=== PATIENT | female | born 1990 ===

== ENCOUNTER 2022-09-14 07:03 | Inpatient (IN) ==
--- NOTE | 2022-09-13 08:51 | Anesthesiology Consultation ---
Date of Service September 13, 2022 Assessment & Plan (1) Encounter for pre-operative examination: - COVID screening: Per assessment on 09/13: No known COVID-19 positive contacts or current COVID-19 related symptoms. Travel screen negative. Patient vaccinated. At surgeon discretion if preop Covid testing being done. - End Stapler needed: Welsh. L&D aware. Chart Review Chart Review: Acceptable Risk for Surgery Consults Requested none ASA [id number] Proposed Anesthesia Anesthesia Type: MAC Spinal History Surgery Operation Date: 09/14/22 08:50 Proposed Procedures p Repeat Section - Lorenzo Foote MD Height/Weight Height: 5 ft 2 in Weight: 87.543 kg Allergies Allergy/AdvReac Type Severity Reaction Status Date / Time No Known Allergies Allergy Verified 09/13/22 08:08 Medications Home Medications Medication Instructions Recorded Confirmed Last Taken prenat.vits,emely,gml-yhls-inucf 1 tab PO DAILY 09/13/22 09/13/22 Unknown Active Medications Generic Name Dose Route Start Last Admin Trade Name Freq PRN Reason Stop Dose Admin Citric Acid/Sodium Citrate 30 ml 09/14/22 06:00 09/14/22 09:16 Citric Acid/Sodium Citrate 15 Ml Udc PO 09/14/22 23:59 30 ml PREOP LAVERNE Administration Lactated Ringer's 1,000 mls @ 1,000 mls/hr 09/14/22 07:00 09/14/22 09:30 Lr IV 09/14/22 23:59 Infused TODAY@0700 LAVERNE Infusion Oxytocin 20 units/ Lactated 1,002 mls @ 125 mls/hr 09/14/22 11:30 09/14/22 12:05 Ringer's IV 09/15/22 03:31 125 mls/hr .Q8H1M LAVERNE Administration Ketorolac Tromethamine 30 mg 09/14/22 10:53 09/14/22 15:43 Ketorolac 30 Mg/Ml Vial IV 09/15/22 04:53 30 mg Q6H PRN Administration Breakthrough Surgical Pain Past Medical History Medical History No pertinent past medical history Past Surgical History Surgical History Hx of section Social History Smoking Status: Never smoker Do You Dip or Chew Tobacco: No Hx Alcohol Use: No Hx Substance Use: No substance use type: does not use Physical Exam Vital Signs Last Vital Signs Temp 36.2 C L 09/14/22 13:30 Pulse 98 H 09/14/22 13:30 Resp 16 09/14/22 13:30 BP 106/69 09/14/22 13:30 Pulse Ox 98 09/14/22 13:30 O2 Del Method Room Air 09/14/22 13:30 Testing Laboratory Results 09/14/22 07:17 09/14/22 08:42 Blood Type B Positive 09/14/22 07:16 Antibody Screen NEGATIVE 09/14/22 07:16
[~2022-09-14 07:03] MED LIST: CITRIC ACID/SODIUM CITRATE 15 ML UDC PO SCH; LACTATED RINGER'S 1,000 ML IV SCH; ceFAZolin 2,000 MG in SYRINGE 0 ML IV SCH
[2022-09-14 07:40] LABS: Basophils # (auto) 0.01 K/uL (0-0.2); Basophils % (auto) 0.1 %; Eosinophils # (auto) 0.08 K/uL (0-0.50); Eosinophils % (auto) 1.1 %; Hematocrit (blood only) 34.6 % (37.0-47.0); Hemoglobin 11.9 g/dl (12.0-16.0); Immature Granulocytes # (auto) 0.03 K/uL (0.01-0.20); Immature Granulocytes % (auto) 0.4 %; Lymphocytes # (auto) 2.06 K/uL (1.2-3.4); Lymphocytes % (auto) 29.1 %; Mean Corpuscular Hemoglobin 30.7 pg (25.0-34.0); Mean Corpuscular Hgb Conc 34.4 g/dL (32.0-36.0); Mean Corpuscular Volume 89.4 fL (80.0-100.0); Mean Platelet Volume 10.7 fL (9.4-12.4); Monocytes # (auto) 0.59 K/uL (0.11-0.59); Monocytes % (auto) 8.3 %; Neutrophils # (auto) 4.32 K/uL (1.40-6.50); Platelet Count 169 K/uL (130-400); RDW Coefficient of Variation 12.8 % (11.5-14.5); RDW Standard Deviation 41.7 fL (36.4-46.3); Red Blood Count 3.87 M/uL (4.20-5.40); White Blood Count 7.09 K/ul (4.8-10.8)
--- NOTE | 2022-09-14 08:25 | History & Physical Report ---
Date of Service September 14, 2022 Assessment & Plan (1) History of delivery, currently : Plan: 32 yo at 39.6 wks with h/o 2 Csections scheduled for Repeat CS VSS Afebrile FHR reassuring GBS neg Signed an informed consent for RCS , declined Tubal sterilization, Plan to admit, labs and prepare for OR (2) Encounter for pre-operative examination: (3) Gestational diabetes mellitus (GDM): Admission and Anticipated Discharge Date Admission Date: September 14, 2022 History of Present Illness Chief Complaint: Scheduled R epeat CSEction Primary Care Provider: NO PCP Patient is a 32 yo at 39.6 wks, with h/o 2 prior C sections, scheduled for 3rd one today. She was recently transferred from another OB practice in [place]. She reports no medical problems. She has GDMA1, denies any other problems of . +FM She understands the risks and benefits and sgned an informed consent. Declined tubal sterilization. Allergies Allergy/AdvReac Type Severity Reaction Status Date / Time No Known Allergies Allergy Verified 09/13/22 08:08 Home Medications Medication Instructions Recorded Confirmed Type prenat.vits,emely,ays-mmub-qfcok 1 tab PO DAILY 09/13/22 09/13/22 History Patient History Medical History No pertinent past medical history Surgical History Hx of section Social History Smoking Status: Never smoker Second Hand Exposure: No; Do You Dip or Chew Tobacco: No; Tobacco Cessation Education Requested by Patient: No Hx Alcohol Use: No Hx Substance Use: No Preferred Language: Urdu Communication Ability: Effective Wood Die Maker Required: Yes Beliefs That Will Affect Care: Restoration Restoration Beliefs: MORMONISM Current Living Situation: Spouse and Family Other Information That Helps Us Care for You: No Feels Safe at Home: Yes Safety Concerns: Feels Safe At This Time Assistive Devices: None OB History Primary Csection on 2017 for breech Repeat Csection in 2020 for repeat Review of Systems as per Subjective / HPI Physical Exam Constitutional: WD/WN, vitals as above Gastrointestinal (Abdomen): normal bowel sounds, soft, nontender, no hepatos plenomegaly (gravid) Genitourinary: normal external appearance OB Exam Monitor Tracing: + external uterine monitor used and + category I Results & Data Vital Signs (Past 12 Hours) Vital Signs Pulse BP 09/14/22 07:31 82 111/65
[2022-09-14] MEDS ORDERED: SODIUM CHLORIDE 0.9% 250 ML IV PRN (09:04)
[2022-09-14 09:20] LABS: Alanine Aminotransferase 8 U/L (7-52); Albumin Globulin Ratio 1.1 (0.9-2); Albumin Level 3.2 gm/dl (3.4-5.0); Alkaline Phosphatase 100 U/L (34-104); Anion Gap 8 (3-11); Aspartate Aminotransferase 13 U/L (13-39); BUN Creatinine Ratio 19.4 (10-20); Bilirubin,Total 0.4 mg/dl (0.2-1.0); Blood Urea Nitrogen 7 mg/dl (6-23); Calcium 8.4 mg/dl (8.6-10.3); Carbon Dioxide 24 mmol/L (21-32); Chloride 105 mmol/L (98-107); Creatinine Clr Calc Pharmacy 228.3 ml/min; Est GFR (African American) > 150.0 ml/min; Est GFR (Non-African American) 141.7 ml/min; Globulin 2.9 gm/dl (2.5-4.0); Glucose 78 mg/dl (70-99(Fasting)); Potassium 3.5 mmol/L (3.5-5.1); Sodium 137 mmol/L (136-145); Total Protein 6.1 gm/dl (6.0-8.3)
[2022-09-14] MEDS ORDERED: MoRPHine SULFATE PF 1 MG/ML 10 ML AMP/VIAL ONE (09:35)
[2022-09-14] MEDS ORDERED: ePHEDrine sulfate 50 MG/ML SYR ONE (09:50)
[2022-09-14] MEDS ORDERED: PHENYLEPHRINE 100MCG/ML 5ML SYR ONE (09:50)
[2022-09-14] MEDS ORDERED: OXYTOCIN 10 UNITS/ML 10ML VIAL ONE (09:50)
[2022-09-14] MEDS ORDERED: ePHEDrine sulfate 50 MG/ML AMP ONE (09:50)
[2022-09-14] MEDS ORDERED: fentaNYL citrate PF 100 MCG/2 ML VIAL ONE (10:17)
[2022-09-14] MEDS ORDERED: ONDANSETRON INJ 2 MG/ML 2 ML VIAL ONE (10:17)
--- NOTE | 2022-09-14 10:51 | Anesthesiology Consultation ---
Date of Service September 14, 2022 Assessment & Plan Chart Review Chart Review: Acceptable Risk for Surgery Consults Requested none History Surgery Operation Date: 09/14/22 08:50 Proposed Procedures p Repeat Section - Lorenzo Foote MD Height/Weight Height: 5 ft 2 in Weight: 87.543 kg Allergies Allergy/AdvReac Type Severity Reaction Status Date / Time No Known Allergies Allergy Verified 09/13/22 08:08 Medications Home Medications Medication Instructions Recorded Confirmed Last Taken prenat.vits,emely,hcx-mwmh-xayug 1 tab PO DAILY 09/13/22 09/13/22 Unknown Active Medications Generic Name Dose Route Start Last Admin Trade Name Freq PRN Reason Stop Dose Admin Citric Acid/Sodium Citrate 30 ml 09/14/22 06:00 09/14/22 09:16 Citric Acid/Sodium Citrate 15 Ml Udc PO 09/14/22 23:59 30 ml PREOP LAVERNE Administration Cefazolin Sodium 2,000 mg/ 15 mls @ 3.75 mls/min 09/14/22 06:00 09/14/22 09:28 Syringe IV 09/14/22 14:00 3.75 mls/min PREOP LAVERNE Administration Protocol Lactated Ringer's 1,000 mls @ 1,000 mls/hr 09/14/22 07:00 09/14/22 07:54 Lr IV 09/14/22 23:59 999 mls/hr TODAY@0700 LAVERNE Administration Past Medical History Medical History No pertinent past medical history Past Surgical History Surgical History Hx of section Social History Smoking Status: Never smoker Do You Dip or Chew Tobacco: No Hx Alcohol Use: No Hx Substance Use: No substance use type: does not use Physical Exam Vital Signs Last Vital Signs Temp 36.8 C 09/14/22 08:09 Pulse 82 09/14/22 09:18 Resp 18 09/14/22 09:00 BP 111/65 09/14/22 07:31 Pulse Ox 100 09/14/22 09:18 Testing Laboratory Results 09/14/22 07:17 09/14/22 08:42 Blood Type B Positive 09/14/22 07:16 Antibody Screen NEGATIVE 09/14/22 07:16
[2022-09-14] MEDS ORDERED: HYDROmorphone INJ 0.5 MG/0.5 ML SYR IV PRN (10:53)
[2022-09-14] MEDS ORDERED: NALOXONE HCL 0.4 MG/1 ML VIAL/CARP IV PRN (10:53)
[2022-09-14] MEDS ORDERED: ONDANSETRON INJ 2 MG/ML 2 ML VIAL IV PRN (10:53)
[2022-09-14] MEDS ORDERED: diphenhydrAMINE 50 MG/ML VIAL IV PRN (10:53)
[2022-09-14] MEDS ORDERED: NALBUPHINE HCL INJ 10 MG/ML AMP IV PRN (10:53)
[2022-09-14] MEDS ORDERED: LACTATED RINGER'S 500 ML IV PRN (10:53)
[2022-09-14] MEDS ORDERED: MoRPHine SULFATE 2 MG/ML CARP IV PRN (10:53)
[2022-09-14] MEDS ORDERED: MEPERIDINE HCL 25 MG/ML CARP/VIAL IV PRN (10:53)
[2022-09-14] MEDS ORDERED: NALOXONE HCL 1 MG in SODIUM CHLORIDE 0.9% 1000ML 1,000 ML IV PRN (10:53)
[2022-09-14] MEDS ORDERED: ePHEDrine sulfate 50 MG/ML AMP IV PRN (10:53)
[2022-09-14] MEDS ORDERED: PROMETHAZINE HCL 25 MG in SODIUM CHLORIDE 0.9% 50 ML IV PRN (10:53)
[2022-09-14] MEDS ORDERED: MoRPHine SULFATE PF 1 MG/ML 10 ML AMP/VIAL INT SPINAL ONE (10:53)
[2022-09-14] MEDS ORDERED: NALOXONE HCL 0.08 MG in SYRINGE 1.8 ML IV PRN (10:53)
[2022-09-14] MEDS ORDERED: SODIUM CHLORIDE 0.9% 1000ML 1,000 ML IV SCH (11:00)
[2022-09-14] MEDS ORDERED: NO NARCOTICS OR SEDATIVES SCH (11:00)
[2022-09-14] MEDS ORDERED: DC INTRASPINAL MORPHINE SCH (11:00)
[2022-09-14] MEDS ORDERED: SENNA 8.6 MG TAB PO PRN (11:09)
[2022-09-14] MEDS ORDERED: MAGNESIUM HYDROXIDE SUSP 30 ML UDC PO PRN (11:09)
[2022-09-14] MEDS ORDERED: HYDROCORTISONE ACETATE 25 MG SUPP PR PRN (11:09)
[2022-09-14] MEDS ORDERED: DIPHTHERIA/TETANUS/PERTUSSIS Vaccine (Tdap, Age 7+yrs) 0.5mL SYR/VL IM ONE (11:09)
[2022-09-14] MEDS ORDERED: BENZOCAINE 20% AER SPR 82.5 GM CAN EXT PRN (11:09)
--- NOTE | 2022-09-14 11:10 | Post Operative Brief Note ---
Immediate Post Op Note v1 Date of Surgery September 14, 2022 Pre & Post Diagnosis Operation Date: 09/14/22 08:50 Pre-Op Diagnosis: Repeat Section Post-Op Diagnosis: Same;Delivery of a live female child at 1013 I identified the patient and participated in the time-out.: Yes Procedure Operation Date: 09/14/22 08:50 Actual Procedures p Repeat Section - Lorenzo Foote MD Surgeon Lorenzo Foote MD Pan Pusher BRYAN Huertas Estimated Blood Loss 400 Findings Consistent with Post-Op Diagnosis Drains [place] Catheter Complications none
[2022-09-14] MEDS ORDERED: LACTATED RINGER'S 1,000 ML IV SCH (11:15)
[2022-09-14] MEDS: OXYTOCIN 20 UNITS in LACTATED RINGER'S 1,000 ML IV SCH ×2 (12:05→19:54)
--- NOTE | 2022-09-14 12:26 | Operative Report (OR) ---
DATE OF SURGERY: 09/14/2022. PREOPERATIVE DIAGNOSES: The patient is a 32-year-old G3, P2-0-0-2 at 40 weeks and 1 day gestation, who was scheduled for repeat section for history of prior two C-sections. POSTOPERATIVE DIAGNOSES: The patient is a 32-year-old G3, P2-0-0-2 at 40 weeks and 1 day gestation, who was scheduled for repeat section for history of prior two C-sections. PROCEDURE: Repeat low transverse with Pfannenstiel skin incision and lysis of adhesions and scarring. SURGEON: Lorenzo Foote MD. CONTACT PERSON: BRYAN Huertas. ESTIMATED BLOOD LOSS: 400. DRAINS: [place]ola catheter drained clear urine. ANESTHESIA: Spinal. ANESTHESIOLOGIST: Dr. Page. COMPLICATIONS: None. FINDINGS: Baby was a viable female delivered at 12:13 a.m. Apgars were 8/8, and weight is 3530 gr. MATERNAL FINDINGS: Extensive scarring in the rectus fascia and parietal peritoneum and vesicouterine peritoneum and otherwise normal uterus, fallopian tubes, and ovaries. DESCRIPTION OF PROCEDURE: The patient was taken to the operating room where spinal anesthesia was given without difficulty. She was placed in dorsal supine position with a leftward tilt. She was prepared and draped in the usual sterile fashion. A Pfannenstiel skin incision was made from the old scar, carried through to the underlying layer of fascia with the Bovie. Fascia was incised in the midline and incision was extended laterally with the tip of Bovie as well as Raya scissors. Extensive scarring and thickening was noted on the fascia. Those were carefully reduced and dissected. Upper edge of fascia incision was grasped with 2 Brittney clamps, elevated, and underlying rectus muscles were dissected off sharply and bluntly with Raya scissors. Bovie tip was used to get rid of the scarring and adhesions. Same thing was done on the lower aspect of the fascial incision, which was held with Brittney clamps, elevated and underlying rectus muscles were again dissected off sharply with Raya scissors and bluntly with fingers. Rectus muscles were also attached in the midline. They were incised with a scalpel and then unable to enter the parietal peritoneum due to extensive scarring. The peritoneum was identified, grasped with pickups, and elevated. It was carefully dissected to get the thinnest portion at a higher level of the rectus muscles. We made sure there was no bladder or bowel under the incision and then the parietal peritoneum was entered with the tip of Metzenbaum scissors and bluntly with the finger and then we felt that the bladder flap was down where we entered but covering the lower uterine segment and all those peritoneal adhesions to the uterine wall was dissected off carefully with the tip of Metzenbaum scissors and bluntly with fingers and then we were able to go into the bladder flap. The bladder was pushed down with the vesicouterine peritoneum and bladder blade was inserted. Rectus muscles were stretched to provide more exposure of the abdominal cavity and some of the scarred parts of peritoneum and the muscle was incised gently to aid during delivery of the . Then lower uterine segment was incised in a transverse fashion. The incision was extended laterally with the help of Raya scissors. Membranes were ruptured and meconium stained fluid was obtained and head was delivered without difficulty. Shoulders were delivered with minimal traction. Mouth and nose were suctioned. Cord was clamped x2 and cut at 1 minute delay. Baby was vigorously moving and crying at that point and then she was handed of pediatric team with Dr Samuel. The cord blood was obtained. Placenta was delivered manually as intact and complete. We were unable to exteriorize the uterus due to the scarring and tight abdominal wall. So uterus was kept inside and it was cleaned of all clots and debris and it was held with ring forceps from the incision at 4 points. The incision was repaired with 0 Vicryl in a running locked fashion and a second imbricating layer was placed with another 0 Vicryl in a running locked fashion. Excellent hemostasis was achieved. Then both ovaries and fallopian tubes were checked to be normal and the pelvis was irrigated with warm normal saline and suctioned. Incision was checked to be again hemostatic. Parietal peritoneum was reapproximated with 3-0 Vicryl in a running fashion. Rectus muscles were reapproximated with 2-0 Vicryl in a running fashion and it was hemostatic. Rectus fascia was reapproximated with 0 Vicryl in a running fashion and subcuticular fat tissue was brought together with 3-0 Vicryl in a running fashion. The skin was closed with 4-0 Monocryl in a subcuticular fashion. The patient tolerated the procedure well. Sponge, lap, needle, and instrument count was correct x3. She has received 2 grams of Cefazolin before surgery. No complications happened and I was present during whole procedure with my timber management assistant, BRYAN who was needed for retraction, hemostasis and aid during delivery of infant. At the end of the procedure, she was taken to recovery room in stable condition. Job ID: [id number] [facility]
[2022-09-14] MEDS: KETOROLAC 30 MG/ML VIAL IV PRN ×2 (15:43→22:32)
--- NOTE | 2022-09-14 15:50 | Anesthesiology Progress Note ---
Date of Service September 14, 2022 Anesthesia Post Procedure Vital Signs Vital Signs: Temp Pulse Resp BP Pulse Ox 09/14/22 13:08 16 09/14/22 12:38 16 09/14/22 11:58 16 09/14/22 12:08 16 09/14/22 11:48 16 09/14/22 11:38 16 09/14/22 11:28 14 09/14/22 11:18 12 09/14/22 11:08 36.5 C 14 09/14/22 08:09 36.8 C 20 09/14/22 13:17 90 100 09/14/22 13:18 89 112/56 L 09/14/22 13:12 92 H 100 09/14/22 13:07 87 100 09/14/22 13:08 95 H 97/52 L 09/14/22 13:02 90 100 09/14/22 12:58 94 H 98/55 L 09/14/22 12:57 98 H 100 09/14/22 12:52 97 H 100 09/14/22 12:48 89 100/53 L 09/14/22 12:47 93 H 100 09/14/22 12:42 84 100 09/14/22 12:37 99 H 100 09/14/22 12:38 86 109/56 L 09/14/22 12:32 84 100 09/14/22 12:27 88 100 09/14/22 12:28 85 114/64 09/14/22 12:22 94 H 100 09/14/22 12:18 86 110/56 L 09/14/22 12:17 88 100 09/14/22 12:12 83 100 09/14/22 12:07 94 H 100 09/14/22 12:08 85 113/58 L 09/14/22 12:02 88 100 09/14/22 11:57 80 100 09/14/22 11:58 77 115/58 L 09/14/22 11:52 78 100 09/14/22 11:48 82 114/59 L 09/14/22 11:47 77 97 09/14/22 11:42 77 100 09/14/22 11:37 76 100 09/14/22 11:38 92 H 110/59 L 09/14/22 11:32 73 95 09/14/22 11:33 78 87 L 09/14/22 11:28 73 115/59 L 09/14/22 11:27 79 99 09/14/22 11:22 82 98 09/14/22 11:18 75 113/64 09/14/22 11:17 83 92 09/14/22 11:12 70 99 09/14/22 11:08 75 115/66 09/14/22 11:07 77 100 09/14/22 09:00 18 09/14/22 09:00 18 09/14/22 08:00 20 09/14/22 08:00 36.8 C 20 09/14/22 08:30 18 09/14/22 08:30 18 09/14/22 09:18 82 100 09/14/22 07:31 82 111/65 Transfer of Care Handoff Completed per policy Notes Mental Status: alert / awake / arousable and participated in evaluation Nausea / Vomiting: adequately controlled Pain: adequately controlled Airway Patency, RR, SpO2: stable & adequate BP & HR: stable & adequate Hydration State: stable & adequate Neuraxial Anesthesia: was administered and sensory block is resolving Anesthetic Complications: no major complications apparent and Pt Satisfied with anesthetic care
[2022-09-14] MEDS: SIMETHICONE 80 MG CHEW PO SCH ×3 (17:41→22:49)
[2022-09-14] MEDS: DOCUSATE SODIUM 100 MG CAP PO SCH (21:26)
[2022-09-15] MEDS ORDERED: diphenhydrAMINE 50 MG/ML VIAL IV PRN (04:53)
[2022-09-15] MEDS ORDERED: PROMETHAZINE HCL 25 MG in SODIUM CHLORIDE 0.9% 50 ML IV PRN (04:53)
[2022-09-15] MEDS ORDERED: diphenhydrAMINE Capsule 25 MG CAP PO PRN (04:53)
[2022-09-15] MEDS ORDERED: MEPERIDINE HCL 50 MG/ML CARP IV PRN (04:53)
[2022-09-15] MEDS ORDERED: ONDANSETRON INJ 2 MG/ML 2 ML VIAL IV PRN (04:53)
[2022-09-15] MEDS ORDERED: KETOROLAC 30 MG/ML VIAL IV PRN (04:53)
[2022-09-15] MEDS: IBUPROFEN 600 MG TAB PO PRN ×5 (05:21→23:42)
[2022-09-15 07:17] LABS: Basophils # (auto) 0.02 K/uL (0-0.2); Basophils % (auto) 0.2 %; Eosinophils # (auto) 0.05 K/uL (0-0.50); Eosinophils % (auto) 0.5 %; Hematocrit (blood only) 28.7 % (37.0-47.0); Immature Granulocytes # (auto) 0.04 K/uL (0.01-0.20); Immature Granulocytes % (auto) 0.4 %; Lymphocytes # (auto) 1.42 K/uL (1.2-3.4); Lymphocytes % (auto) 14.7 %; Mean Corpuscular Hemoglobin 31.1 pg (25.0-34.0); Mean Corpuscular Hgb Conc 34.8 g/dL (32.0-36.0); Mean Corpuscular Volume 89.1 fL (80.0-100.0); Mean Platelet Volume 11.1 fL (9.4-12.4); Monocytes # (auto) 0.71 K/uL (0.11-0.59); Monocytes % (auto) 7.3 %; Neutrophils # (auto) 7.43 K/uL (1.40-6.50); Neutrophils % (auto) 76.9 %; Platelet Count 140 K/uL (130-400); RDW Standard Deviation 42.3 fL (36.4-46.3); Red Blood Count 3.22 M/uL (4.20-5.40); White Blood Count 9.67 K/ul (4.8-10.8)
[2022-09-15] MEDS: PRENATAL VITAMIN 1 TAB PO SCH (08:01)
[2022-09-15] MEDS: SIMETHICONE 80 MG CHEW PO SCH ×4 (08:01→19:50)
[2022-09-15] MEDS: DOCUSATE SODIUM 100 MG CAP PO SCH ×2 (08:01→19:50)
[2022-09-15] MEDS: FERROUS SULFATE 325 MG TAB PO SCH (08:01)
--- NOTE | 2022-09-15 10:09 | Obstetrical Progress Note ---
Date of Service September 15, 2022 Assessment & Plan (1) delivery delivered: POD #1 pt ding well continue day #1 care Subjective Ambulation: ambulating normally Voiding: no voiding problems Passing Gas:: Yes Diet Tolerance:: clear liquids Lochia:: Small Feeding Type:: breast feeding Review of Systems All systems reviewed & are unremarkable except as noted in HPI & below Physical Exam Constitutional WD/WN, vitals as above well developed and well nourished Eyes PERRL, conjunctivae normal, anicteric sclerae ENMT external ear and nose normal, oropharynx normal Neck trachea midline, no thyromegaly Respiratory normal respiratory effort, lungs clear to auscultation Cardiovascular RRR, no murmur, no edema Chest (Breasts) normal inspection/palpation of breasts Gastrointestinal (Abdomen) normal bowel sounds, soft, nontender, no hepatosplenomegaly Musculoskeletal no cyanosis or clubbing, extremities motor strength 5/5 Skin no rashes, warm and dry + incision (Clean,dry and intact) Neurologic patellar DTR's 2+ bilat, sensation intact Psychiatric A+Ox3, euthymic affect Genitourinary normal external appearance Lymphatic no cervical or axillary lymphadenopathy Results & Data Vital Signs (Past 12 Hours) Vital Signs Temp Pulse Pulse Resp BP BP Pulse Ox 09/15/22 08:15 36.7 C 84 19 98/62 L 96 09/15/22 04:45 36.5 C 88 16 93/60 L 97 09/15/22 04:45 16 97 09/15/22 04:00 16 96 09/15/22 03:00 16 96 09/15/22 02:08 16 96 09/15/22 01:14 16 94 09/15/22 00:10 16 95 09/14/22 23:05 36.5 C 90 16 98/60 L 98 09/14/22 23:05 16 98 09/14/22 22:30 18 98 O2 Del Method 09/15/22 08:15 Room Air 09/15/22 04:45 Room Air 09/15/22 04:45 09/15/22 04:00 09/15/22 03:00 09/15/22 02:08 09/15/22 01:14 09/15/22 00:10 09/14/22 23:05 Room Air 09/14/22 23:05 09/14/22 22:30
[2022-09-15] MEDS: oxyCODONE/ACETAMINOPHEN 5mg/325mg TAB PO PRN ×4 (11:32→23:43)
[2022-09-15] MEDS ORDERED: bisacodyL 5 MG TABEC PO SCH (20:00)
--- NOTE | 2022-09-16 06:49 | Obstetrical Progress Note ---
Date of Service September 16, 2022 Assessment & Plan (1) delivery delivered: POD #2 pt doing well d/c home with instructions Results & Data Vital Signs (Past 12 Hours) Vital Signs Temp Pulse Resp BP Pulse Ox O2 Del Method 09/15/22 23:20 36.5 C 86 18 99/66 L 98 Room Air 09/15/22 23:20 Room Air
[2022-09-16 07:07] LABS: Hematocrit (blood only) 26.9 % (37.0-47.0); Hemoglobin 9.3 g/dl (12.0-16.0)
[2022-09-16] MEDS: SIMETHICONE 80 MG CHEW PO SCH ×3 (08:20→17:33)
[2022-09-16] MEDS: PRENATAL VITAMIN 1 TAB PO SCH (08:20)
[2022-09-16] MEDS: FERROUS SULFATE 325 MG TAB PO SCH (08:20)
[2022-09-16] MEDS: DOCUSATE SODIUM 100 MG CAP PO SCH (08:20)
[2022-09-16] MEDS: IBUPROFEN 600 MG TAB PO PRN ×3 (08:21→17:34)
[2022-09-16] MEDS: oxyCODONE/ACETAMINOPHEN 5mg/325mg TAB PO PRN ×3 (08:22→17:33)
[2022-09-16] MEDS ORDERED: bisacodyL 10 MG SUPP PR PRN (11:09)
[2022-09-17] MEDS: SIMETHICONE 80 MG CHEW PO SCH ×2 (00:05→08:10)
[2022-09-17] MEDS: DOCUSATE SODIUM 100 MG CAP PO SCH ×2 (00:06→08:10)
[2022-09-17] MEDS: oxyCODONE/ACETAMINOPHEN 5mg/325mg TAB PO PRN ×2 (00:06→06:29)
[2022-09-17] MEDS: IBUPROFEN 600 MG TAB PO PRN ×2 (00:07→06:30)
--- NOTE | 2022-09-17 00:47 | Obstetrical Progress Note ---
Date of Service September 17, 2022 Assessment & Plan Admission and Anticipated Discharge Date Admission Date: September 14, 2022 Subjective Patient is seen and examined. She wanted to stay another night and stayed. She feels well, no complaints other than incision pain. Pain is under control with oral meds. Ambulating without dizziness Voiding without difficulty Tolerating regular diet with out N&V Flatus + BM + Bleeding is minimal No fever/ chills/ CP/ SOB/ N&V/ Leg pain Breast feeding without problems Vital Signs Temp Pulse Resp BP Pulse Ox O2 Del Method 09/16/22 20:10 36.4 C L 76 18 106/68 100 Room Air 09/16/22 16:00 36.4 C L 81 16 102/68 98 Room Air Lab Results 09/14/22 09/14/22 09/14/22 Range/Units 07:16 07:17 08:42 WBC 7.09 (4.8-10.8) K/ul RBC 3.87 L (4.20-5.40) M/uL Hgb 11.9 L (12.0-16.0) g/dl Hct 34.6 L (37.0-47.0) % MCV 89.4 (80.0-100.0) fL MCH 30.7 (25.0-34.0) pg MCHC 34.4 (32.0-36.0) g/dL RDW Std Deviation 41.7 (36.4-46.3) fL RDW Coeff of Renea 12.8 (11.5-14.5) % Plt Count 169 (130-400) K/uL MPV 10.7 (9.4-12.4) fL Immature Gran % (Auto) 0.4 % Neut % (Auto) 61.0 % Lymph % (Auto) 29.1 % [place] % (Auto) 8.3 % Eos % (Auto) 1.1 % Baso % (Auto) 0.1 % Neut # (Auto) 4.32 (1.40-6.50) K/uL Lymph # (Auto) 2.06 (1.2-3.4) K/uL [place] # (Auto) 0.59 (0.11-0.59) K/uL Eos # (Auto) 0.08 (0-0.50) K/uL Baso # (Auto) 0.01 (0-0.2) K/uL Immature Gran # (Auto) 0.03 (0.01-0.20) K/uL Sodium 137 (136-145) mmol/L Potassium 3.5 (3.5-5.1) mmol/L Chloride 105 (98-107) mmol/L Carbon Dioxide 24 (21-32) mmol/L Anion Gap 8 (3-11) BUN 7 (6-23) mg/dl Creatinine 0.36 L (0.6-1.2) mg/dl Est Cr Clr Drug Dosing 228.3 ml/min Est GFR ( Amer) > 150.0 ml/min Est GFR (Non-Af Amer) 141.7 ml/min BUN/Creatinine Ratio 19.4 (10-20) Glucose 78 (70-99(Fasting)) mg/dl Calcium 8.4 L (8.6-10.3) mg/dl Total Bilirubin 0.4 (0.2-1.0) mg/dl AST 13 (13-39) U/L ALT 8 (7-52) U/L Alkaline Phosphatase 100 (34-104) U/L Total Protein 6.1 (6.0-8.3) gm/dl Albumin 3.2 L (3.4-5.0) gm/dl Globulin 2.9 (2.5-4.0) gm/dl Albumin/Globulin Ratio 1.1 (0.9-2) Hepatitis C Ab (EIA) (NON-REACTIVE) Hep C Ab Signal/Cutoff (<1.00) SARS-CoV-2, RNA, NAAT (NEGATIVE) Blood Type B Positive Antibody Screen NEGATIVE 09/14/22 09/14/22 09/15/22 Range/Units 08:42 Unknown 06:46 WBC 9.67 (4.8-10.8) K/ul RBC 3.22 L (4.20-5.40) M/uL Hgb 10.0 L (12.0-16.0) g/dl Hct 28.7 L (37.0-47.0) % MCV 89.1 (80.0-100.0) fL MCH 31.1 (25.0-34.0) pg MCHC 34.8 (32.0-36.0) g/dL RDW Std Deviation 42.3 (36.4-46.3) fL RDW Coeff of Renea 13.0 (11.5-14.5) % Plt Count 140 (130-400) K/uL MPV 11.1 (9.4-12.4) fL Immature Gran % (Auto) 0.4 % Neut % (Auto) 76.9 % Lymph % (Auto) 14.7 % [place] % (Auto) 7.3 % Eos % (Auto) 0.5 % Baso % (Auto) 0.2 % Neut # (Auto) 7.43 H (1.40-6.50) K/uL Lymph # (Auto) 1.42 (1.2-3.4) K/uL [place] # (Auto) 0.71 H (0.11-0.59) K/uL Eos # (Auto) 0.05 (0-0.50) K/uL Baso # (Auto) 0.02 (0-0.2) K/uL Immature Gran # (Auto) 0.04 (0.01-0.20) K/uL Sodium (136-145) mmol/L Potassium (3.5-5.1) mmol/L Chloride (98-107) mmol/L Carbon Dioxide (21-32) mmol/L Anion Gap (3-11) BUN (6-23) mg/dl Creatinine (0.6-1.2) mg/dl Est Cr Clr Drug Dosing ml/min Est GFR ( Amer) ml/min Est GFR (Non-Af Amer) ml/min BUN/Creatinine Ratio (10-20) Glucose (70-99(Fasting)) mg/dl Calcium (8.6-10.3) mg/dl Total Bilirubin (0.2-1.0) mg/dl AST (13-39) U/L ALT (7-52) U/L Alkaline Phosphatase (34-104) U/L Total Protein (6.0-8.3) gm/dl Albumin (3.4-5.0) gm/dl Globulin (2.5-4.0) gm/dl Albumin/Globulin Ratio (0.9-2) Hepatitis C Ab (EIA) NON-REACTIVE (NON-REACTIVE) Hep C Ab Signal/Cutoff 0.04 (<1.00) SARS-CoV-2, RNA, NAAT NEGATIVE (NEGATIVE) Blood Type Antibody Screen 09/16/22 Range/Units 06:33 WBC (4.8-10.8) K/ul RBC (4.20-5.40) M/uL Hgb 9.3 L (12.0-16.0) g/dl Hct 26.9 L (37.0-47.0) % MCV (80.0-100.0) fL MCH (25.0-34.0) pg MCHC (32.0-36.0) g/dL RDW Std Deviation (36.4-46.3) fL RDW Coeff of Renea (11.5-14.5) % Plt Count (130-400) K/uL MPV (9.4-12.4) fL Immature Gran % (Auto) % Neut % (Auto) % Lymph % (Auto) % [place] % (Auto) % Eos % (Auto) % Baso % (Auto) % Neut # (Auto) (1.40-6.50) K/uL Lymph # (Auto) (1.2-3.4) K/uL [place] # (Auto) (0.11-0.59) K/uL Eos # (Auto) (0-0.50) K/uL Baso # (Auto) (0-0.2) K/uL Immature Gran # (Auto) (0.01-0.20) K/uL Sodium (136-145) mmol/L Potassium (3.5-5.1) mmol/L Chloride (98-107) mmol/L Carbon Dioxide (21-32) mmol/L Anion Gap (3-11) BUN (6-23) mg/dl Creatinine (0.6-1.2) mg/dl Est Cr Clr Drug Dosing ml/min Est GFR ( Amer) ml/min Est GFR (Non-Af Amer) ml/min BUN/Creatinine Ratio (10-20) Glucose (70-99(Fasting)) mg/dl Calcium (8.6-10.3) mg/dl Total Bilirubin (0.2-1.0) mg/dl AST (13-39) U/L ALT (7-52) U/L Alkaline Phosphatase (34-104) U/L Total Protein (6.0-8.3) gm/dl Albumin (3.4-5.0) gm/dl Globulin (2.5-4.0) gm/dl Albumin/Globulin Ratio (0.9-2) Hepatitis C Ab (EIA) (NON-REACTIVE) Hep C Ab Signal/Cutoff (<1.00) SARS-CoV-2, RNA, NAAT (NEGATIVE) Blood Type Antibody Screen PE: General: Alert, orientedx3, NAD CVS: S1S2 RRR Lungs; CTAB Abd: soft, NT, ND, BS+, fundus firm, below Umbilicus Incision: Clean, dry, intact, some of the sterile stips were stained with old blood, removed and no bleeding from incision site, it was covered with new sterile strips. Perineum intact, Lochia rubra minimal Ext; NT, no edema AP: 32 yo s/p C Section, pod# 3 VSS Afebrile doing well Continue routine postop care Encourage ambulation, PO intake All questions were answered D/C home after breakfast and f/u in office. Results & Data Vital Signs (Past 12 Hours) Vital Signs Temp Pulse Resp BP Pulse Ox O2 Del Method 09/16/22 20:10 36.4 C L 76 18 106/68 100 Room Air 09/16/22 16:00 36.4 C L 81 16 102/68 98 Room Air
[2022-09-17] MEDS: PRENATAL VITAMIN 1 TAB PO SCH (08:11)
[2022-09-17] MEDS: FERROUS SULFATE 325 MG TAB PO SCH (08:11)
== END 2022-09-17 11:35 | disposition home or self-care (01) | DRG 788 ==
LOC: 4S1 07:03 → EDSTATUS 08:50 → 4E2 13:30